=== PATIENT | male | born 1990 | race Caucasian/White ===

== ENCOUNTER → 2020-08-06 | Emergency (ER) | payer OTHER ==
[~2020-08-06] VITALS: Ht 180.3 cm; Wt 127.1 kg
[~2020-08-06] MED LIST: CEPH250T PO; LIDOcaine 1% W/epiNEPHrine 1:200,000 10ml vial IJ ONE; TETanus/Pertussis (Acell)/Diphther VAC/PF (Tdap-Adult) 0.5ml syringe IMVAC ONE
[2020-08-06 15:09] VITALS: BP 150/95
== END | disposition home or self-care (01) ==
LOC: ER 14:33
DX: S51.812A Laceration without foreign body of left forearm, initial encounter (principal); S51.832A Puncture wound without foreign body of left forearm, initial encounter; Z20.3 Contact with and (suspected) exposure to rabies; Z79.2 Long term (current) use of antibiotics; W19.XXXA Unspecified fall, initial encounter; Y93.89 Activity, other specified; Y92.89 Other specified places as the place of occurrence of the external cause; Y99.8 Other external cause status
CPT/HCPCS: 12001; 90471; 90715; 99283